=== PATIENT | female | born 1960 | race African-American/Black ===

== ENCOUNTER 2024-11-05 14:47 | Emergency (ER) | payer OTHER ==
[~2024-11-05] VITALS: Ht 167.6 cm; Wt 80.0 kg
[2024-11-05 14:51] VITALS: TEMP 36.9; O2SAT 100
[2024-11-05] MEDS ORDERED: IBUP-2029 MT (17:39)
[2024-11-05 18:00] VITALS: BP 196/92; PULSE 78; RESP 14; O2SAT 100
== END 2024-11-05 18:06 | disposition home or self-care (01) ==
LOC: ER 14:47
DX: M25.561 Pain in right knee (principal); E78.5 Hyperlipidemia, unspecified; I10 Essential (primary) hypertension; M17.11 Unilateral primary osteoarthritis, right knee; Z90.49 Acquired absence of other specified parts of digestive tract
CPT/HCPCS: 93971; 99284